=== PATIENT | female | born 1985 ===

== ENCOUNTER → 2018-11-29 | Outpatient (CLI) | payer SELFPAY ==
--- NOTE | 2018-11-29 09:59 | US ---
EXAMINATION TYPE: US pelvic complete DATE OF EXAM: 11/29/2018 COMPARISON: NONE CLINICAL HISTORY: N93.8 dysfunctional uterine bleeding. Pt had menses go on for 3 weeks x 1. TECHNIQUE: Transabdominal (TA). Patient paying out of pocket, request no transvaginal. Date of LMP: 10/28/18 EXAM MEASUREMENTS: Uterus: 9.3 x 3.9 x 5.3 cm Endometrial Stripe: 1.0 cm Right Ovary: 3.7 x 2.3 x 2.2 cm Left Ovary: 3.5 x 2.3 x 2.1 cm 1. Uterus: Retroverted wnl 2. Endometrium: wnl 3. Right Ovary: wnl 4. Left Ovary: wnl 5. Bilateral Adnexa: wnl 6. Posterior cul-de-sac: wnl IMPRESSION: 1. No acute process. Endometrial stripe measures 1 cm correlate with the phase of patient's menstrual cycle.
== END | disposition home or self-care (01) ==
LOC: RADUSWWP 08:26
PROVIDERS: ATTEND Family Medicine
DX: N93.8 Other specified abnormal uterine and vaginal bleeding (principal)
CPT/HCPCS: 76856